=== PATIENT | male | born 1985 | race Caucasian/White ===

== ENCOUNTER 2019-07-06 12:23 | Emergency (ER) | payer BC ==
[~2019-07-06] VITALS: Ht 160 cm; Wt 81.0 kg
[2019-07-06 12:30] VITALS: BP 155/99
== END 2019-07-06 15:11 | disposition home or self-care (01) ==
LOC: ER 13:08
DX: J06.9 Acute upper respiratory infection, unspecified (principal); J11.1 Influenza due to unidentified influenza virus with other respiratory manifestations; M79.10 Myalgia, unspecified site
CPT/HCPCS: 87804; 99283